=== PATIENT | female | born 1960 | race Caucasian/White ===

== ENCOUNTER → 2016-10-02 | Outpatient (CLI) | payer BC ==
--- NOTE | 2016-10-03 15:07 | MAMMOGRAPHY REPORT ---
BILATERAL DIGITAL SCREENING MAMMOGRAM TOMOSYNTHESIS WITH CAD: 10/02/2016 CLINICAL HISTORY: Routine screening. Patient has no complaints. TECHNIQUE: Breast tomosynthesis in addition to standard 2D mammography was performed. Current study was also evaluated with a Computer Aided Detection (CAD) system. COMPARISON: Comparison is made to exams dated: 09/20/2015 mammogram, 09/15/2014 mammogram, 07/13/2013 ma mmogram, 07/07/2012 mammogram, 07/04/2011 mammogram, and 07/03/2010 mammogram - [facility] enter. BREAST COMPOSITION: The tissue of both breasts is heterogeneously dense, which may obscure small ma sses. FINDINGS: There are possible faint clustered microcalcifications in the medial left breast, thought to project inferiorly on the MLO view, for which additional spot magnification views are recommende d. There is a 5.6 m nodular asymmetry in the posterior right breast, along the posterior nipple anika e on the CC view, thought to project superiorly based on the MLO view, for which additional spot com pression views and possibly ultrasound are recommended. There are stable benign coarse calcifications and round microcalcifications elsewhere in the breasts . No other suspicious mass, architectural distortion or cluster of microcalcifications is seen. IMPRESSION: ACR BI-RADS CATEGORY 0: INCOMPLETE EVALUATION: NEED ADDITIONAL IMAGING EVALUATION The possible faint clustered microcalcifications in the medial left breast, and 5.6 mm nodular asymm etry in the posterior right breast need additional imaging evaluation. The patient will be called to schedule an appointment. Approximately 10% of breast cancers are not detected with mammography. A negative mammographic repor t should not delay biopsy if a clinically suggestive mass is present. Kari Bermudez M.D. ay/:10/02/2016 21:57:27 Tar Heat Exchanger Cleaner: Mallory PATINO(R)(Yoni), [facility] letter sent: Addl Imaging 0 BI-RADS Code: ACR BI-RADS Category 0: Incomplete Evaluation: Need Additional Imaging Evaluation
== END | disposition home or self-care (01) ==
LOC: C.MAMM 14:35
PROVIDERS: ATTEND Obstetrics & Gynecology
DX: Z12.31 Encounter for screening mammogram for malignant neoplasm of breast (principal); R92.0 Mammographic microcalcification found on diagnostic imaging of breast; N64.89 Other specified disorders of breast

== ENCOUNTER → 2016-10-10 | Outpatient (CLI) | payer BC ==
--- NOTE | 2016-10-10 13:20 | MAMMOGRAPHY REPORT ---
BILATERAL DIGITAL DIAGNOSTIC MAMMOGRAM TOMOSYNTHESIS AND TARGETED RIGHT ULTRASOUND: 10/10/2016 CLINICAL HISTORY: Callback from screening mammogram for right breast asymmetry and left breast calci fications. TECHNIQUE: Breast tomosynthesis in addition to standard 2D mammography was performed. Spot yuliana celestina right CC and MLO 2-D and tomosynthesis images and spot magnification left CC and ML views were obtained. COMPARISON: Comparison is made to exams dated: 10/02/2016 mammogram, 09/20/2015 mammogram, 09/15/2014 m ammogram, 07/13/2013 mammogram, 07/07/2012 mammogram, and 07/04/2011 mammogram - [facility] enter. BREAST COMPOSITION: The tissue of both breasts is heterogeneously dense, which may obscure small ma sses. FINDINGS: The previously described nodular 6 mm asymmetry seen within the posterior right breast al kristie the posterior nipple line on the cc view effaces on the additional spot compression view, withou t a suspicious mass or other suspicious findings seen in this region on the additional images. No c orrelate is seen on the MLO view. Spot magnification views of the left breast demonstrate a small faint 3 mm cluster of punctate calci fications in the left lower inner quadrant, with a few possible other scattered punctate calcificati ons seen more superiorly on the MLO view. The calcifications are stable compared to the 2016 exam, and were likely present on the 2015 exam although it is difficult to make accurate comparison due to differences in mammographic technique between the current and prior exams (currently using Hologic equipment, previously using Rithmio equipment). The calcifications are probably benign given the morphol ogy and at least one year of stability. Targeted ultrasound was performed of the right 12:00, 6:00, and subareolar breast, in the region of the mammographic asymmetry seen on one view only. No clear sonographic correlate for the mammograph ic asymmetry is seen. In the right breast at 12:30, 4 cm from the nipple, there is an oval circumsc ribed parallel 3 x 3 x 5 mm slightly hypoechoic mass, which is felt to be incidentally noted. Given the solid appearance of the mass, it is indeterminate and ultrasound-guided biopsy is recommended f or further evaluation. IMPRESSION: ACR BI-RADS CATEGORY 4A: LOW SUSPICION FOR MALIGNANCY, TARGETED ULTRASOUND ACR BI-RADS CATEGORY 4A: LOW SUSPICION FOR MALIGNANCY 1. Hypoechoic circumscribed 5 mm mass in the right breast at 12:30 on ultrasound, which is felt to be incidentally noted. The mass is indeterminate and ultrasound-guided core needle biopsy is recomm ended for further evaluation. This may represent a fibroadenoma. 2. Small 3 mm cluster of faint punctate calcifications in the left lower inner quadrant are likely s table compared to the 2016 and 2015 exams and are probably benign. Recommend follow-up diagnostic m ammograms of the left breast in 6 months to confirm stability. 3. The right breast asymmetry effaces on the additional views, without corresponding suspicious son ographic abnormality evident. The asymmetry is benign and felt to represent normal fibroglandular t issue. A phone call was made to the physician's office to confirm faxed results were received. The patient has been verbally notified of the results. She tentatively scheduled the biopsy before leaving the department. Approximately 10% of breast cancers are not detected with mammography. A negative mammographic repor t should not delay biopsy if a clinically suggestive mass is present. Parris Rodriguez M.D. ah/:10/10/2016 10:38:20 Morning Nanny: Anisa Medina RT(R)(M), [facility] letter sent: Abnormal 4/5 BI-RADS Code: ACR BI-RADS Category 4A: Low Suspicion For Malignancy Ultrasound BI-RADS: ACR BI-RADS Category 4A: Low Suspicion For Malignancy
== END | disposition home or self-care (01) ==
LOC: C.MAMM 09:53
PROVIDERS: ATTEND Obstetrics & Gynecology
DX: N63 Unspecified lump in breast (principal); R92.1 Mammographic calcification found on diagnostic imaging of breast; N64.89 Other specified disorders of breast

== ENCOUNTER → 2016-10-16 | Outpatient (CLI) | payer BC ==
--- NOTE | 2016-10-16 11:25 | Discharge Instructions ---
Discharge Instructions Procedure Procedure Date: October 16, 2016. Reason for visit: Right Mass. Discharge Discharge Date: October 16, 2016. Discharge Diagnosis: status post breast biopsy Instructions Activity Recommendations: Additional Limitations (see below) Return to School/Work: no limitations Recommended Home Diet: No Limitations Provider Instructions: ACTIVITY RECOMMENDATIONS: * No lifting, pushing, pulling or exercising the affected side for three days. RETURN TO SCHOOL/WORK: * You may return to work/school after the procedure, but do not perform any strenuous activities for 24 to 48 hours. MEDICATIONS: * Tylenol (two 325 mg) every four to six hours if needed for mild pain (if not allergic to Tylenol). DIET: * Resume previous diet. SPECIAL CARE INSTRUCTIONS: * Keep biopsy site dry for 24 hours. May shower after 24 hours, but do not soak (bathe) incision. * May remove Tegaderm (plastic patch) tomorrow AFTER showering. * Leave the steri-strips on for one week. Allow the steri-strips to fall off by themselves. If not off after one week, you may remove them. You may place a Bandaid crosswise over the strips, if desired. * Apply ice 10 minutes on and 10 minutes off as needed. * Wear a bra at bedtime to sleep more comfortably for 2-3 days. * Your referring physician should have the results after approximately 5 to 7 business days. * Call for unusual bleeding, fever, drainage, etc or if you have any questions call during normal business hours or after hours call Dr Rodriguez, . FOLLOW UP VISIT: Follow-up with Referring Physician as scheduled. Shalini Truong Recommendations: Call your doctor if: * Temperature above 101 degrees * Pain not relieved by pain medicine ordered * There is increased drainage or redness from any incision * You have any unanswered questions or concerns. Your Doctors Instructions noted above were prepared by provider Parris Rodriguez. Patient Signature Section: Patient Instructions Signature Page Jacqueline Evans Patient (or Guardian) Signature/Date: I have read and understand the instructions given to me by my caregivers. Caregiver/RN/Doctor Signature/Date: The above-named patient and/or guardian has received patient instructions on this date. + Original Patient Signature Page (only) stays with chart. Please make copy for patient.
--- NOTE | 2016-10-16 13:18 | MAMMOGRAPHY REPORT ---
THIS REPORT HAS BEEN AMENDED. AMENDMENT: 10/23/2016 Parris Rodriguez M.D. The pathology from ultrasound guided biopsy of a right 12:30 breast mass was reviewed on 10/23/2016. The pathology shows a sclerotic fibroadenoma, which is concordant with the imaging findings. Recom mend follow-up diagnostic mammograms of the left breast in 6 months to reevaluate left breast calcif ications. ULTRASOUND GUIDED BIOPSY RIGHT BREAST: 10/16/2016 CLINICAL HISTORY: Right 12:30 breast mass. PATIENT CONSENT: The procedure, risks and benefits were discussed with the patient and informed writ ten consent was obtained. A timeout was performed immediately prior to the procedure. PROCEDURE DESCRIPTION: With ultrasound guidance, aseptic technique, and lidocaine as the local anest hetic (1% lidocaine to anesthetize the skin and 1% lidocaine with epinephrine to anesthetize the zayda per tissues), the mass of concern in the right 12:30 breast was sampled 3 times with a 14-gauge Achi rohini biopsy needle. Immediately thereafter, with ultrasound guidance, aseptic technique, and lidoca ine as the local anesthetic, a metallic localizer clip was placed at the biopsy site. Direct pressu re was applied to the site immediately post procedure and hemostasis was achieved. Postprocedure un ilateral mammograms were performed to confirm placement of the clip in the expected location of the breast mass. The patient tolerated the procedure without complication. She was given wound care in structions. The specimens were sent to pathology for analysis. COMPARISON: Comparison is made to exams dated: 10/10/2016 ultrasound, 10/10/2016 mammogram, 10/02/2016 m ammogram, 09/20/2015 mammogram, 09/15/2014 mammogram, and 07/13/2013 mammogram - [facility]. IMPRESSION: ULTRASOUND GUIDED BIOPSY Ultrasound guided core needle biopsy of the right 12:30 breast mass, with clip placement. The patie nt will receive pathology results from her referring provider. Pending benign pathology results, re commend follow-up diagnostic mammograms of the left breast in 6 months to reevaluate the left breast calcifications. Parris Rodriguez M.D. /:10/16/2016 11:28:52 Family Centered Specialist: Anisa PATINO(Anastasiia)(Yoni), [facility]
--- NOTE | 2016-10-16 13:18 | MAMMOGRAPHY REPORT ---
UNILATERAL RIGHT DIGITAL DIAGNOSTIC MAMMOGRAM TOMOSYNTHESIS: 10/16/2016 CLINICAL HISTORY: Status post right breast ultrasound guided biopsy. TECHNIQUE: Breast tomosynthesis in addition to standard 2D mammography was performed. Postprocedur al right CC and ML views were obtained. COMPARISON: Comparison is made to exams dated: 10/10/2016 mammogram, 10/02/2016 mammogram, 09/20/2015 m ammogram, 09/15/2014 mammogram, 07/13/2013 mammogram, and 07/07/2012 mammogram - [facility] nter. BREAST COMPOSITION: The tissue of the right breast is heterogeneously dense, which may obscure smal l masses. FINDINGS: A new biopsy marker clip is seen within the right upper inner quadrant status post ultras ound guided biopsy of a right 11:00 breast mass. No significant postbiopsy hematoma is seen. IMPRESSION: POST PROCEDURE IMAGING FOR MARKER PLACEMENT New biopsy marker clip status post ultrasound-guided right breast biopsy. Pathology results are pen ding. Approximately 10% of breast cancers are not detected with mammography. A negative mammographic repor t should not delay biopsy if a clinically suggestive mass is present. Parris Rodriguez M.D. /:10/16/2016 11:41:31 Desolderer: Anisa PATINO(Anastasiia)(Yoni), [facility] BI-RADS Code: Post Procedure Imaging For Marker Placement
== END | disposition home or self-care (01) ==
LOC: C.MAMM 10:54
PROVIDERS: ATTEND Obstetrics & Gynecology
DX: N63 Unspecified lump in breast (principal); D24.1 Benign neoplasm of right breast

== ENCOUNTER → 2017-05-21 | Outpatient (CLI) | payer BC ==
--- NOTE | 2017-05-21 16:02 | MAMMOGRAPHY REPORT ---
UNILATERAL LEFT DIGITAL DIAGNOSTIC MAMMOGRAM TOMOSYNTHESIS WITH CAD: 05/21/2017 CLINICAL HISTORY: 57-year-old woman presents for a short interval follow-up of the left breast for a small 3 mm grouping of very faint punctate microcalcifications in the medial left breast. 6 months a go she underwent right breast ultrasound guided core biopsy of a mass in the 12:30 right breast which yielded a sclerotic fibroadenoma. TECHNIQUE: Left breast CC and MLO 2-D and tomosynthesis images, spot magnification left CC and ML vie ws were obtained. Current study was also evaluated with a Computer Aided Detection (CAD) system. COMPARISON: Comparison is made to exams dated: 10/10/2016 mammogram, 10/02/2016 mammogram, 09/20/2015 ma mmogram, 09/15/2014 mammogram, 07/13/2013 mammogram, and 07/07/2012 mammogram - [facility]. BREAST COMPOSITION: The tissue of the left breast is heterogeneously dense, which may obscure small masses. FINDINGS: The glandular pattern is similar to prior mammograms. There are stable benign coarse calci fications in the anterior left breast. No obvious new mass, focal area of architectural distortion o r new calcifications are seen in the left breast. Spot magnification views of the left breast redemonstrate a faint 3 mm grouping of punctate microcalc ifications in the lower inner middle one third of the breast. They have not significantly changed vi sually or in size comparing to the spot magnification views obtained on 10/10/2016 and most likely ar e benign. However another six-month follow-up diagnostic mammogram including spot magnification view s is recommended to ensure longer stability. Annual right mammography will also be due at that time. IMPRESSION: ACR-BI-RADS CATEGORY 3: PROBABLY BENIGN Stable mammographic appearance of the left breast including a faint 3 mm grouping of punctate microca lcifications in the lower inner quadrant of the left breast. Another six-month follow-up left diagno stic mammogram including spot magnification views is recommended to ensure longer stability. Annual right mammography will also be due at that time. These results and recommendations were discussed with the patient at the time of the exam. Approximately 10% of breast cancers are not detected with mammography. A negative mammographic report should not delay biopsy if a clinically suggestive mass is present. Kari Bermudez M.D. ay/:05/21/2017 09:35:03 Relief Worker: Mallory HUGHES)(Yoni), [facility] letter sent: Follow Up Recommended 3 BI-RADS Code: ACR-BI-RADS Category 3: Probably Benign
== END | disposition home or self-care (01) ==
LOC: C.MAMM 09:00
PROVIDERS: ATTEND Obstetrics & Gynecology
DX: R92.0 Mammographic microcalcification found on diagnostic imaging of breast (principal)

== ENCOUNTER → 2017-07-07 | Outpatient (CLI) | payer BC | END | disposition home or self-care (01) | LOC: C.PAPS 14:48 | PROVIDERS: ATTEND Obstetrics & Gynecology | DX: Z01.411 Encounter for gynecological examination (general) (routine) with abnormal findings (principal); R87.612 Low grade squamous intraepithelial lesion on cytologic smear of cervix (LGSIL) ==

== ENCOUNTER → 2017-10-21 | Outpatient (CLI) | payer BC ==
--- NOTE | 2017-10-22 15:25 | MAMMOGRAPHY REPORT ---
BILATERAL DIGITAL DIAGNOSTIC MAMMOGRAM TOMOSYNTHESIS WITH CAD: 10/21/2017 CLINICAL HISTORY: 57-year-old woman presents at time of annual bilateral screening mammography. She is approximately 1 year status post benign ultrasound-guided core biopsy of a mass in the right breas t at 12:30 which yielded a fibroadenoma. She also presents to follow-up a small cluster of microcalc ifications in the lower inner middle one third of the left breast. TECHNIQUE: Bilateral breast tomosynthesis in addition to standard 2D mammography was performed. Spo t magnification CC and ML views of each breast were also obtained. Current study was also evaluated w ith a Computer Aided Detection (CAD) system. COMPARISON: Comparison is made to exams dated: 05/21/2017 mammogram, 10/16/2016 mammogram, 10/16/2016 ultrasound biopsy, 10/10/2016 ultrasound, 10/10/2016 mammogram, and 10/02/2016 mammogram - [facility]. BREAST COMPOSITION: The tissue of both breasts is heterogeneously dense, which may obscure small mas ses. FINDINGS: The glandular tissue pattern of the right breast is stable comparing to prior mammograms. A ribbon-shaped biopsy marker clip is again noted in the 12:30 right breast. There are possible new microcalcifications extending over 18 mm in a linear distribution in the far superior and posterior b reast, projecting over the pectoralis muscle on the MLO view (tomosynthesis slice 43/75), for which a dditional spot magnification views were obtained. No new suspicious masses, asymmetries or areas of architectural distortion are identified in the right breast. The glandular pattern of the left breast is similar to prior mammograms. No new suspicious masses, a symmetries or areas of distortion are seen in the left breast. There are 2 coarse benign calcificati ons in the anterior subareolar left breast. Spot magnification views of the left breast redemonstrat e a small, 3.4 mm cluster of punctate/amorphous microcalcifications that does not appear significantl y changed dating back to spot magnification views obtained 10/10/2016. Spot magnification views of the right breast do not include the entire area of calcifications, but so me of the punctate calcifications along the most anterior aspect of the grouping are identified on th e spot magnification ML view. The calcifications are best visualized on the right MLO full-field vie w. When comparing back to prior available mammograms, these were not definitely identified and are t herefore indeterminate. Definitive characterization with a stereotactic guided biopsy should be atte mpted. The most anterior aspect of the calcifications may possibly be amenable to stereotactic biops y. At the time of attempted biopsy in the right breast, stereotactic biopsy should also be performed of the clustered microcalcifications in the left lower inner quadrant. IMPRESSION: ACR BI-RADS CATEGORY 4: SUSPICIOUS 1. Bilateral stereotactic breast biopsies are recommended. First, for new punctate microcalcificatio ns in a linear distribution in the 12:00 far posterior right breast, and second, for a 3.4 mm cluster of punctate/amorphous micro calcifications in the lower inner quadrant of the left breast. (It shou ld be noted that the right sided microcalcifications are in a far posterior location within the breas t, which could make a stereotactic guided biopsy difficult although I feel as though the most anterio r of the calcifications would be amenable to stereotactic biopsy.) These results and recommendations were discussed with the patient at the time of the exam. She tenta tively scheduled the bilateral breast stereotactic guided biopsies prior to leaving our department. Approximately 10% of breast cancers are not detected with mammography. A negative mammographic report should not delay biopsy if a clinically suggestive mass is present. Kari Bermudez M.D. ay/:10/21/2017 15:06:22 Diesel Mechanic Farm: Kelle Duvall, [facility] letter sent: Abnormal 4/5 BI-RADS Code: ACR BI-RADS Category 4: Suspicious
== END | disposition home or self-care (01) ==
LOC: C.MAMM 08:59
PROVIDERS: ATTEND Obstetrics & Gynecology
DX: R92.0 Mammographic microcalcification found on diagnostic imaging of breast (principal)

== ENCOUNTER → 2017-10-29 | Outpatient (CLI) | payer BC ==
--- NOTE | 2017-10-29 13:29 | Discharge Instructions ---
Discharge Instructions Procedure Procedure Date: October 29, 2017. Reason for visit: Bilateral Calcifications. Discharge Discharge Date: October 29, 2017. Discharge Diagnosis: status post breast biopsy Instructions Activity Recommendations: Additional Limitations (see below) Return to School/Work: no limitations Recommended Home Diet: No Limitations Provider Instructions: ACTIVITY RECOMMENDATIONS: * No lifting, pushing, pulling or exercising the affected side for three days. RETURN TO SCHOOL/WORK: * You may return to work/school after the procedure, but do not perform any strenuous activities for 24 to 48 hours. MEDICATIONS: * Tylenol (two 325 mg) every four to six hours if needed for mild pain (if not allergic to Tylenol). DIET: * Resume previous diet. SPECIAL CARE INSTRUCTIONS: * Keep biopsy site dry for 24 hours. May shower after 24 hours, but do not soak (bathe) incision. * May remove Tegaderm (plastic patch) tomorrow AFTER showering. * Leave the steri-strips on for one week. Allow the steri-strips to fall off by themselves. If not off after one week, you may remove them. You may place a Bandaid crosswise over the strips, if desired. * Apply ice 10 minutes on and 10 minutes off as needed. * Wear a bra at bedtime to sleep more comfortably for 2-3 days. * Your referring physician should have the results after approximately 5 to 7 business days. * Call for unusual bleeding, fever, drainage, etc or if you have any questions call during normal business hours or after hours call Dr Rodriguez, . FOLLOW UP VISIT: Follow-up with Referring Physician as scheduled. Shalini Truong Recommendations: Call your doctor if: * Temperature above 101 degrees * Pain not relieved by pain medicine ordered * There is increased drainage or redness from any incision * You have any unanswered questions or concerns. Your Doctors Instructions noted above were prepared by provider Parris Rodriguez. Patient Signature Section: Patient Instructions Signature Page Jacqueline Evans Patient (or Guardian) Signature/Date: I have read and understand the instructions given to me by my caregivers. Caregiver/RN/Doctor Signature/Date: The above-named patient and/or guardian has received patient instructions on this date. + Original Patient Signature Page (only) stays with chart. Please make copy for patient.
--- NOTE | 2017-10-30 14:18 | MAMMOGRAPHY REPORT ---
STEREOTACTIC GUIDED BIOPSY LEFT BREAST: 10/29/2017 CLINICAL HISTORY: Indeterminate calcifications in the left lower inner quadrant. PATIENT CONSENT: The procedure, risks, benefits, and alternatives of stereotactic biopsy with clip pl acement were discussed with the patient, and verbal and written consent was obtained. A timeout was performed immediately prior to the procedure. PROCEDURE DESCRIPTION: With stereotactic guidance, aseptic technique, and lidocaine as a local anesth etic (1% lidocaine to anesthetize the skin and 1% lidocaine with epinephrine to anesthetize the deepe r tissues), the calcifications of concern in the left lower inner quadrant were sampled multiple time s with a 9-gauge vacuum-assisted biopsy needle ([place]). The path of approach was caudocranial. The specimen radiograph demonstrates calcifications to be present in the samples. A metallic marke r clip was placed at the biopsy site. This was confirmed on postprocedure mammograms. Direct pressu re was applied at the biopsy site and hemostasis was readily achieved. The patient tolerated the pro cedure without complication. She was given wound care instructions. COMPARISON: Comparison is made to exams dated: 10/21/2017 mammogram, 10/10/2016 mammogram, 10/02/2016 ma mmogram, 09/20/2015 mammogram, 09/15/2014 mammogram, and 07/13/2013 mammogram - [facility]. IMPRESSION: STEREOTACTIC GUIDED BIOPSY Stereotactic biopsy of indeterminate calcifications in the left lower inner quadrant, with clip place ment. The patient will receive pathology results from her referring provider. Parris Rodriguez M.D. /:10/29/2017 14:17:44 Attending Technologist: Anisa Medina RT(R)(M), [facility] [place] Operator: Linda Evans RT(R)(M), [facility]
--- NOTE | 2017-10-30 14:18 | MAMMOGRAPHY REPORT ---
BILATERAL DIGITAL DIAGNOSTIC MAMMOGRAM: 10/29/2017 CLINICAL HISTORY: Status post bilateral stereotactic biopsy. TECHNIQUE: Postprocedural bilateral CC and ML views were obtained. COMPARISON: Comparison is made to exams dated: 10/29/2017 stereotactic biopsy, 10/21/2017 mammogram, 1 07/22/2016 mammogram, 10/16/2016 mammogram, 10/10/2016 mammogram, and 09/20/2015 mammogram - [facility]. BREAST COMPOSITION: The tissue of both breasts is heterogeneously dense, which may obscure small mas ses. FINDINGS: A new dumbbell-shaped biopsy marker clip is seen in the right breast status post stereotact ic biopsy of right 12:00 posterior calcifications. A ribbon shaped biopsy clip is seen within the ri ght upper inner quadrant middle depth from prior benign biopsy. A new dumbbell-shaped biopsy marker clip is seen in the left central breast status post stereotactic biopsy of left breast calcifications . No significant postbiopsy hematoma is seen. IMPRESSION: POST PROCEDURE IMAGING FOR MARKER PLACEMENT New biopsy marker clips status post bilateral stereotactic biopsies. Pathology results are pending. Approximately 10% of breast cancers are not detected with mammography. A negative mammographic report should not delay biopsy if a clinically suggestive mass is present. Parris Rodriguez M.D. ah/:10/29/2017 14:19:51 Attending Technologist: Anisa Medina RT(R)(M), [facility] Reservations Agent: Linda Evans RT(R)(M), [facility] BI-RADS Code: Post Procedure Imaging For Marker Placement
--- NOTE | 2017-10-30 14:18 | MAMMOGRAPHY REPORT ---
STEREOTACTIC GUIDED BIOPSY RIGHT BREAST: 10/29/2017 CLINICAL HISTORY: Indeterminate calcifications in the posterior right 12:00 breast. PATIENT CONSENT: The procedure, risks, benefits, and alternatives of stereotactic biopsy with clip pl acement were discussed with the patient, and verbal and written consent was obtained. A timeout was performed immediately prior to the procedure. PROCEDURE DESCRIPTION: With stereotactic guidance, aseptic technique, and lidocaine as a local anesth etic (1% lidocaine to anesthetize the skin and 1% lidocaine with epinephrine to anesthetize the deepe r tissues), the calcifications of concern in the right 12:00 breast were sampled multiple times with a 9-gauge vacuum-assisted biopsy needle ([employer]). The path of approach was craniocaudal. The s pecimen radiograph demonstrates calcifications to be present in the samples. A metallic marker clip was placed at the biopsy site. This was confirmed on postprocedure mammograms. Direct pressure was applied at the biopsy site and hemostasis was readily achieved. The patient tolerated the procedure without complication. She was given wound care instructions. COMPARISON: Comparison is made to exams dated: 10/29/2017 stereotactic biopsy, 10/21/2017 mammogram, 1 07/22/2016 mammogram, 10/16/2016 mammogram, 10/16/2016 ultrasound biopsy, and 10/10/2016 ultrasound - [facility]. IMPRESSION: STEREOTACTIC GUIDED BIOPSY Stereotactic biopsy of indeterminate calcifications in the right 12:00 breast, with clip placement. The patient will receive pathology results from her referring provider. Parris Rodriguez M.D. /:10/29/2017 14:02:55 Attending Technologist: Anisa Medina RT(R)(M), [facility] Senior Military Analyst: Linda Evans RT(R)(M), [facility]
== END | disposition home or self-care (01) ==
LOC: C.MAMM 12:30
PROVIDERS: ATTEND Obstetrics & Gynecology
DX: D05.91 Unspecified type of carcinoma in situ of right breast (principal); R92.0 Mammographic microcalcification found on diagnostic imaging of breast